=== PATIENT | female | born 1990 | race Caucasian/White ===

== ENCOUNTER 2020-04-15 15:14 | Outpatient (CLI) | payer OTHER, SELFPAY ==
--- NOTE | 2020-04-15 15:21 | USCV_ITS ---
Marge Day Age: 29 Gender: F : 1990 Exam Date: 04/15/2020 15:42 Ordering Phys: Keely Cerna Technologist: Ina Nguyen Exam Location: [facility] – [place] Indication: murmur BP: 99 / 57 HR: 62 Rhythm: Sinus Technical Quality: Adequate MEASUREMENTS (Male / Female) Normal Values 2D ECHO LV Diastolic Diameter PLAX 4.7 cm 4.2 - 5.9 / 3.9 - 5.3 cm LV Systolic Diameter PLAX 3.5 cm LV Chamber Size 3.1 cm IVS Diastolic Thickness 0.9 cm 0.6 - 1.0 / 0.6 - 0.9 cm IVS Systolic Thickness 1.1 cm LVPW Diastolic Thickness 1.7 cm 0.6 - 1.0 / 0.6 - 0.9 cm LVPW Systolic Thickness 1.7 cm RV Chamber Size 3.1 cm LVOT Diameter 2.0 cm LV Ejection Fraction 2D Teich 50.2 % LV Ejection Fraction MOD 2C 54.3 % LV Ejection Fraction 2C AL 56.6 % LA Diameter 3.4 cm LA Width 2.7 cm LA Height 4.4 cm RA Width 2.5 cm RA Height 3.6 cm Aorta at Sinotubular Diameter 2.7 cm M-MODE LV Diastolic Diameter MM 6.5 cm 4.2 - 5.9 / 3.9 - 5.3 cm LV Systolic Diameter MM 3.7 cm LV Ejection Fraction MM Teich 72.6 % IVS Diastolic Thickness MM 0.7 cm 0.6 - 1.0 / 0.6 - 0.9 cm IVS Systolic Thickness MM 1.1 cm LVPW Diastolic Thickness MM 0.9 cm 0.6 - 1.0 / 0.6 - 0.9 cm LVPW Systolic Thickness MM 1.4 cm Aortic Annulus Diameter 3.1 cm LA Ao Ratio MM 1.1 MV E Point Septal Separation 0.5 cm DOPPLER AV Peak Velocity 100.0 cm/s LVOT Peak Velocity 95.0 cm/s AV Area Cont Eq vti 3.0 cm squared AV Area Cont Eq pk 3.0 cm squared MV Area PHT 3.3 cm squared Mitral E to A Ratio 3.3 MV E' Velocity 23.0 cm/s Mitral E to MV E' Ratio 7.4 Mitral E to LV E' Lateral Ratio 6.7 Mitral E to LV E' Septal Ratio 8.4 TR Peak Velocity 261.0 cm/s TR Peak Gradient 27.3 mmHg TV Peak E Velocity 71.0 cm/s Right Atrial Pressure 3.0 mmHg Pulmonary Artery Systolic Pressu 30.2 mmHg PV Peak Velocity 58.0 cm/s RV Acceleration Time 0.1 s RV Ejection Time 0.3 s RV AcT/ET 0.4 FINDINGS Left Ventricle Normal LV size with a diminished ejection fraction of around 50%. Diffuse hypokinesia left ventricle. Right Ventricle Possibly of normal size ejection fraction Right Atrium Possibly of normal size Left Atrium Mildly increased left atrial size. Mitral Valve Grade 4 prolapse of the posterior mitral leaflet-cannot exclude flailing leaflet. Severe eccentric mitral regurgitation Aortic Valve No gross abnormality noted Tricuspid Valve Mild tricuspid valve regurgitation. Pulmonic Valve No gross abnormalities noted Pericardium No pericardial effusion. Aorta Normal aortic annulus size. CONCLUSIONS Grade 4 prolapse of the posterior mitral leaflet-cannot exclude flailing leaflet. Possibly severe mitral regurgitation, eccentric jet directed anteriorly Mildly increased left atrial size. Normal LV size with a diminished ejection fraction of around 50%. Mild diffuse hypokinesia of the left ventricle Mild tricuspid valve regurgitation. There is no pericardial effusion. There are no intracardiac masses. No previous study is available for comparison. Dr Anny King MD FAC (Electronically Signed) Final Date: 15 April 2020 20:57 S
== END 2020-04-15 15:15 | disposition home or self-care (01) ==
LOC: RAD 15:18
PROVIDERS: PCP Nurse Practitioner; Visit Provider Nurse Practitioner
DX: R01.1 Cardiac murmur, unspecified (principal); I07.1 Rheumatic tricuspid insufficiency
CPT/HCPCS: 93306

== ENCOUNTER → 2022-09-15 13:44 | Outpatient (BNVA) | payer BC, SELFPAY | PROVIDERS: PCP Family Medicine; Visit Provider Family Medicine | DX: N92.6 Irregular menstruation, unspecified (principal); O92.70 Unspecified disorders of lactation; R53.81 Other malaise; R53.83 Other fatigue; Z51.81 Encounter for therapeutic drug level monitoring; Z01.419 Encounter for gynecological examination (general) (routine) without abnormal findings; Z78.9 Other specified health status; F41.9 Anxiety disorder, unspecified | CPT/HCPCS: 80053; 84146; 84439; 84443; 85025; 87624 ==

== ENCOUNTER → 2022-09-18 11:19 | Outpatient (BNVA) | payer BC, SELFPAY | PROVIDERS: PCP Family Medicine; Visit Provider Registered Nurse Neonatal Intensive Care | DX: J02.9 Acute pharyngitis, unspecified (principal) | CPT/HCPCS: 87071; 87880 ==

== ENCOUNTER → 2022-11-27 13:40 | Outpatient (BNVA) | payer BC, SELFPAY | PROVIDERS: PCP Family Medicine; Visit Provider Obstetrics & Gynecology | DX: R87.619 Unspecified abnormal cytological findings in specimens from cervix uteri (principal); Z01.419 Encounter for gynecological examination (general) (routine) without abnormal findings; Z34.90 Encounter for supervision of normal pregnancy, unspecified, unspecified trimester | CPT/HCPCS: 81025; 84315; 87086; 88305 ==

== ENCOUNTER → 2023-09-13 11:29 | Outpatient (BNVA) | payer BC, SELFPAY | PROVIDERS: PCP Family Medicine; Visit Provider Clinical Nurse Specialist Adult Health | DX: G43.909 Migraine, unspecified, not intractable, without status migrainosus (principal); G43.009 Migraine without aura, not intractable, without status migrainosus | CPT/HCPCS: 84443; 85025 ==

== ENCOUNTER → 2023-11-23 10:23 | Outpatient (BNVA) | payer BC, SELFPAY | PROVIDERS: PCP Family Medicine; Visit Provider Psychiatry & Neurology Neurology | DX: G43.009 Migraine without aura, not intractable, without status migrainosus (principal) | CPT/HCPCS: 80053; 82306; 82607; 82746; 83735; 83921 ==

== ENCOUNTER 2023-12-16 07:56 | Outpatient (CLI) | payer BC, SELFPAY ==
--- NOTE | 2023-12-16 08:00 | MR_ITS ---
WS: [id number] MRI BRAIN WITH AND WITHOUT CONTRAST HISTORY: G43.009 - Migraine without aura, not intractable, without... COMPARISON: None available. TECHNIQUE: Multiplanar imaging performed through the brain with MultiHance 18 ml's IV. No acute infarcts are seen. Cosby-white matter differentiation is well preserved. No susceptibility artifacts or prior lacunar infarcts. Ventricles and extra-axial spaces are normal. Clivus and pituitary gland are normal. Visualized posterior fossa and brainstem are also normal. Postcontrast images are negative for masses or vascular malformations. Dural venous sinuses are normal. Paranasal sinuses: Well aerated with no significant disease. Mastoid air cells: Normal. Calvarium and scalp: Normal. IMPRESSION: 1. Normal MRI brain with contrast. 2. No acute infarct and no mass. 3. No volume loss.
[2023-12-16] MEDS: gadobenate dimeglumine 20 mL vial IV (08:33)
== END 2023-12-16 07:57 | disposition home or self-care (01) ==
LOC: RAD 07:57
PROVIDERS: PCP Family Medicine; Visit Provider Psychiatry & Neurology Neurology
DX: G43.009 Migraine without aura, not intractable, without status migrainosus (principal)
CPT/HCPCS: 70553; A9577

== ENCOUNTER → 2025-05-14 09:51 | Outpatient (BNVA) | payer BC, SELFPAY | PROVIDERS: PCP Family Medicine; Visit Provider Family Medicine | DX: Z51.81 Encounter for therapeutic drug level monitoring (principal); R53.81 Other malaise; R53.83 Other fatigue | CPT/HCPCS: 80053; 84439; 84443; 85025 ==

== ENCOUNTER → 2025-05-28 15:53 | Outpatient (BNVA) | payer BC, SELFPAY | PROVIDERS: PCP Family Medicine; Visit Provider Nurse Practitioner Women's Health | DX: Z01.419 Encounter for gynecological examination (general) (routine) without abnormal findings (principal) | CPT/HCPCS: 87624 ==

== ENCOUNTER → 2025-07-16 09:34 | Outpatient (BNVA) | payer BC, SELFPAY | PROVIDERS: PCP Family Medicine; Visit Provider Obstetrics & Gynecology | DX: R87.619 Unspecified abnormal cytological findings in specimens from cervix uteri (principal); R87.610 Atypical squamous cells of undetermined significance on cytologic smear of cervix (ASC-US); R87.810 Cervical high risk human papillomavirus (HPV) DNA test positive | CPT/HCPCS: 81025; 88305 ==

== ENCOUNTER 2025-09-25 06:42 | Day surgery (SDC) | payer BC, SELFPAY ==
[2025-09-25] VITALS (14 sets, daily range): BP systolic 101–130; BP diastolic 76–85; PULSE 68–78; RESP 16–18; TEMP 36.3–36.4; O2SAT 96–100; BMI 27.8
--- NOTE | 2025-09-25 00:52 | W.PM.OPSFHP ---
Same Day Surgery H&P Indication for Procedure/HPI DATE OF PROCEDURE: September 25, 2025 CHIEF COMPLAINT/INDICATIONFOR SURGICAL PROCEDURE: moderate cervical dysplasia PREOP DIAGNOSIS: moderate cervical dysplasia PLANNED PROCEDURE: Operation Date: 09/25/25 08:15 Proposed Procedures p Excision Tissue Cervix Loop Electrosurgical Excision Procedure (LEEP)[id number](Not Applicable) - Micheal Schmidt MD Medications/Allergies* Home Medications ?Medication ?Instructions ?Recorded ?Confirmed ?Type multivitamin 1 tab PO DAILY 07/02/22 09/24/25 History aspirin 81 mg capsule 81 mg PO DAILY 09/24/25 09/24/25 History Allergies/Adverse Reactions Allergy/AdvReac Type Severity Reaction Status Date / Time amoxicillin Allergy Intermediate ALGY-Hives Verified 07/16/25 09:28 chlorhexidine (From AdvReac Intermediate Unknown Verified 07/16/25 09:28 Hibiclens) Pertinent History/Comorbid Conditions* Medical History (Updated 05/28/25 @ 15:40 by Rosalia Khan NP) No pertinent past medical history neghx: htn, dm, thyroid, dvt/pe PCP: [facility] Abnormal Pap smear of cervix Surgical History (Updated 07/02/22 @ 14:59 by Bam Degroot MD) History of mitral valve repair Ring placed at [place] due to prolapse - Asymptomatic Family History (Updated 10/05/22 @ 07:42 by Cristiana Morrison LPN) Heart problem Mother Arrhythmia Thyroid disease Mother Denies family history of Colon cancer Ovarian cancer Diabetes Heart disease Hypercholesteremia Breast cancer Hypertension Uterine cancer Stroke Social History Smoking and tobacco/nicotine status: never used tobacco/nicotine Alcohol intake: current Alcohol intake frequency: few times a week Substance/Drug Use: never 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
--- NOTE | 2025-09-25 07:04 | ECG_ITS ---
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 Measurements Intervals [place] Rate: 64 P: 49 MS: 164 QRS: 7 QRSD: 106 T: 70 QT: 420 QTc: 434 Interpretive Statements SINUS RHYTHM INCOMPLETE RIGHT BUNDLE BRANCH BLOCK [90+ ms QRS DURATION, TERMINAL R IN V1/V2, 40+ ms S IN I/aVL/V4/V5/V6] MODERATE T-WAVE ABNORMALITY, CONSIDER ANTERIOR ISCHEMIA [-0.1+ mV T-WAVE IN V3/V4] No previous ECG available for comparison Electronically Signed On 09-25-2025 20:53:06 [address] OPENINGS INSPECTOR by Anny King M.D. [email or web address] [id number]
[2025-09-25 07:10] LABS: OR HCG Qualitative Urine Negative (Negative)
--- NOTE | 2025-09-25 08:26 | ANES.PREANE2 ---
Pre-Anesthetic Assessment Height/Weight: Height 1.7 m Weight 80.739 kg Temp Pulse Resp BP Pulse Ox O2 Del Method 97.4 F L 72 18 101/78 100 Room Air 09/25/25 07:10 09/25/25 07:10 09/25/25 07:10 09/25/25 07:10 09/25/25 07:10 09/25/25 07:10 Preop Diagnosis: moderate cervical dysplasia Operation Date: 09/25/25 08:15 Proposed Procedures p Excision Tissue Cervix Loop Electrosurgical Excision Procedure (LEEP)[id number](Not Applicable) - Micheal Schmidt MD Familial anesthetic complications: None Was Beta Sarita taken within 24 hours: N/A Was Clonidine taken within 24 hours: N/A Last intake: Intake Last Liquid Date 09/24/25 Last Liquid Time 20:00 Last Solid Date 09/24/25 Last Solid Time 18:00 Social No alcohol and No tobacco Exam alert, oriented x 3, clear to auscultation bilaterally and regular rate & rhythm CV/HEM mitral valve repair - doing well since Anesthetic Plan ASA status: 2 Anesthesia: General Risk of > 500 ml blood loss (7ml/kg in children): No Medications/Allergies Home Medications ?Medication ?Instructions ?Recorded ?Confirmed ?Last Taken ?Type multivitamin 1 tab PO DAILY 07/02/22 09/25/25 09/24/25 History glycopyrrolate 2 mg tablet 2 mg PO BID #60 tabs 12/04/24 09/25/25 09/24/25 Rx rimegepant 75 mg disintegrating 75 mg PO .daily as needed #8 tabs 03/21/25 09/25/25 09/10/25 Rx tablet (Nurtec ODT) topiramate 50 mg capsule,extended 50 mg PO DAILY #30 caps 03/21/25 09/25/25 09/24/25 Rx release 24 hr sertraline 50 mg tablet 50 mg PO DAILY #30 tabs 05/22/25 09/25/25 09/24/25 Rx levothyroxine 50 mcg tablet 50 mcg PO DAILY #30 tabs 09/10/25 09/25/25 09/24/25 Rx aspirin 81 mg capsule 81 mg PO DAILY 09/24/25 09/25/25 09/22/25 History Allergies Allergy/AdvReac Type Severity Reaction Status Date / Time amoxicillin Allergy Intermediate ALGY-Hives Verified 07/16/25 09:28 chlorhexidine (From AdvReac Intermediate Unknown Verified 07/16/25 09:28 Hibiclens) Current Medications Generic Name Dose Route Start Last Admin Trade Name Carleen PRN Reason Stop Dose Admin Sodium Chloride 1,000 mls @ 30 mls/hr 09/25/25 07:00 09/25/25 07:29 Sodium Chloride 0.9% IV 09/26/25 06:59 30 mls/hr .Q24H ARABELLA Administration PFSH Anesthesia Medical History No pertinent past medical history neghx: htn, dm, thyroid, dvt/pe PCP: Zane Abnormal Pap smear of cervix Surgical History History of mitral valve repair Ring placed at [place] due to prolapse - Asymptomatic Family History Mother Heart problem Arrhythmia Thyroid disease Denies family history of Colon cancer Ovarian cancer Diabetes Heart disease Hypercholesteremia Breast cancer Hypertension Uterine cancer Stroke Social History Smoking and tobacco/nicotine status: never used tobacco/nicotine Alcohol intake: current Alcohol intake frequency: few times a week Substance/Drug Use: never 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
--- NOTE | 2025-09-25 08:38 | W.PM.OPSUD ---
Surgery/Procedure H&P Update DATE OF PROCEDURE: September 25, 2025 DATE H&P PERFORMED: 09/25/25 H&P UPDATE INFORMATION: I have reviewed H&P completed within last 30 days, I have examined patient prior to procedure and No changes to prior documentation PREOP DIAGNOSIS: moderate cervical dysplasia PLANNED PROCEDURE: Operation Date: 09/25/25 08:15 Proposed Procedures p Excision Tissue Cervix Loop Electrosurgical Excision Procedure (LEEP)[id number](Not Applicable) - Micheal Schmidt MD
[2025-09-25] MEDS: fentaNYL 50 mcg/mL INJ 2mL IVP ×2 (10:05→10:47)
--- NOTE | 2025-09-25 10:45 | PM.OP ---
Operative Report Date of procedure: September 25, 2025 Pre-op diagnosis: moderate cervical dysplasia Post-op diagnosis: same Procedure done: Electrosurgical loop excision of the cervix Implants: none Specimens removed/disposition: cervical tissue Surgeon: Micheal Schmidt MD Anesthesia: MAC Estimated blood loss (mL): 5 Complications: none Condition: stable Disposition: PACU Brief History: 35 y.o. with moderate cervical dysplasia on colposcopically-directed cervical biopsy Procedure: The patient was taken to the operating room and placed supine on the table. MAC anesthesia was induced. The patient was placed in dorsolithotomy position. The patient was prepped and draped in the usual sterile fashion. A bivalve speculum was placed in the vagina. The anterior lip of the cervix was grasped with a single toothed tenaculum. The cervix was then infiltrated at the cervicovaginal junction with 20 U of vasopressin to decrease bleeding. Electrosurgical loop excision of the cervix was done to a depth of approximately 5 mm. Excellent hemostasis was noted. All instruments were then removed. The patient was placed supine, awakened, and taken to the recovery room. Postoperative condition: stable EBL: less than 5 cc Complications: none Sponge and instrument counts were correct x two
--- NOTE | 2025-09-25 10:56 | SUR.PHASEII ---
No postoperative vaginal bleeding observed.
[2025-09-25] MEDS: oxyCODONE-APAP 5-325 mg Tablet 1 TAB PO (11:29)
--- NOTE | 2025-09-25 11:45 | ANE.PACU2 ---
Inpatient post-anesthesia follow up: Airway intact: Yes Vital signs: Temperature 97.6 F Pulse Rate 68 Respiratory Rate 18 Blood Pressure 113/82 Pulse Oximetry 100 Oxygen Delivery Me thod Room Air Oxygen Flow Rate Fraction of Inspir ed Oxygen Hydration adequate: Yes Nausea and vomiting: No Pain level: 1 Mental status: Baseline
== END 2025-09-25 11:45 | disposition home or self-care (01) ==
PROVIDERS: Anesthesiology; PCP Family Medicine; Visit Provider Obstetrics & Gynecology
PROC: (CPT 57522; principal; 2025-09-25 08:05)
DX: N87.1 Moderate cervical dysplasia (principal); Z79.82 Long term (current) use of aspirin
CPT/HCPCS: 57522; 81025; 88307; 93005; A4216; J1100; J1885; J2250; J2405; J2704; J3010; J3490; J7030; J9999

== ENCOUNTER → 2025-10-03 13:32 | Outpatient (BNVA) | payer BC, SELFPAY | PROVIDERS: PCP Family Medicine; Visit Provider Obstetrics & Gynecology | DX: N92.6 Irregular menstruation, unspecified (principal) | CPT/HCPCS: 84439; 84443; 85025 ==